=== PATIENT | male | born 1990 | race Caucasian/White ===

== ENCOUNTER 2022-08-30 18:52 | Emergency (ER) | payer BC, SELFPAY ==
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
[2022-08-30 18:56] VITALS: BP 143/97; PULSE 97; RESP 20; TEMP 37; O2SAT 97
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
[2022-08-30 20:49] VITALS: BP 119/76; PULSE 64; RESP 18; O2SAT 98
[2022-08-30] MEDS: HYDROcodone/acetaminophen (*CRX) 5-325 MG TABLET 1 TAB PO (20:59)
== END 2022-08-30 21:06 | disposition home or self-care (01) ==
PROVIDERS: Emergency Provider Emergency Medicine
DX: S52.515A Nondisplaced fracture of left radial styloid process, initial encounter for closed fracture (principal); V28.49XA Other motorcycle driver injured in noncollision transport accident in traffic accident, initial encounter
CPT/HCPCS: 29125; 73090; 73110; 73130; 99284; A9270; L3908